=== PATIENT | male | born 1965 ===

== ENCOUNTER 2023-08-22 06:10 | Day surgery (SDC) | payer OTHER ==
[2023-08-22] MEDS ORDERED: CEFAZOLIN SODIUM 1,000 MG VIAL ONE (09:48)
[2023-08-22] MEDS ORDERED: BUPIVACAINE HCL/MPF 0.5% 30ML VIAL ONE (10:24)
[2023-08-22] MEDS ORDERED: CEFAZOLIN SODIUM 1,000 MG VIAL IV SCH (12:00)
[2023-08-22] MEDS ORDERED: BUPIVACAINE HCL 30 ML VIAL IJ ONE (12:00)
== END 2023-08-22 13:40 | disposition home or self-care (01) ==
LOC: CIR.AMB 06:10
PROVIDERS: ATTEND Surgery Surgery of the Hand
DX: M65.841 Other synovitis and tenosynovitis, right hand (principal)